=== PATIENT | female | born 1970 | race Caucasian/White ===

== ENCOUNTER 2017-05-31 16:10 | Emergency (ER) | payer OTHER ==
[2017-05-31 16:19] VITALS: RESP 16
[2017-05-31] MEDS ORDERED: NS 1,000 ML IV ONE (16:46)
--- NOTE | 2017-05-31 16:53 | EDPHY ---
H & P Time Seen by Provider: 05/31/17 16:21 HPI/ROS: HPI Headache, visual changes, muscle spasming. 46-year-old female by private vehicle with . This patient reports that on Tuesday evening she developed a right-sided parietal headache which she describes as a knot in her head. She states that with this she noticed a rash across her stomach. She also reports that she had spasming and sudden stiffening of her left lower extremity. She reports that she rested over the weekend and her symptoms resolved including her rash. She reports however today that her headache, described as above, came back while she was at work she reports that she had blurry vision and a hard time seeing her computer screen and felt like her knees were buckling and she was not able to stand and walk correctly. She reports that this is better now as well. She has not been out in [place]. No possible exposure to ticks. ROS: Constitutional: No fever, no chills. As above. Eyes: No discharge. No changes in vision. ENT: No sore throat. No nasal congestion or rhinorrhea. Respiratory: No cough. No shortness of breath. Cardiac: No chest pain, no palpitations. Gastrointestinal: She has had some intermittent lower abdominal discomfort but denies this now, no vomiting, no diarrhea. Genitourinary: No hematuria. No dysuria or increased frequency with urination. Musculoskeletal: No back pain. No neck pain. No myalgias or arthralgias. Skin: As above. Rash described as hives and blanching. Neurological: As above. Past medical history: She denies any significant past medical history. Social history: Nonsmoker. Drinks alcohol socially. Here with her . Physical Exam: General Appearance: Alert, no distress. This patient is responding to questions appropriately and in full sentences. This patient appears well- hydrated and well-nourished. Head: Normocephalic atraumatic. Eyes: Pupils equal and round no pallor or injection. No lid edema, erythema or injection. No nystagmus. No photophobia. 5 ENT, Mouth: Mucous membranes are moist. The pharyngeal tissues are unremarkable. No edema or swelling. No asymmetry suggestive of abscess. No erythema or exudates. Respiratory: There are no retractions, lungs are clear to auscultation with good air movement bilaterally. Cardiovascular: Regular rate and rhythm. No murmur. Gastrointestinal: Abdomen is soft and nontender, no masses, bowel sounds normal. No focal tenderness at McBurney's point. No Inman sign. Neurological: Motor sensory function is grossly intact. Cranial nerves are normal. Gait is normal. Cerebellar function, heel to burrell, finger to nose intact. Skin: Warm and dry, no rashes appreciated. Musculoskeletal: Neck is supple and nontender. No pain on flexion of her neck. Extremities are symmetrical. All joints range without pain or impingement. Psychiatric: No agitation. No depression. Database: EKG: Imaging: MRI of brain without contrast: Some atrophy noted. Mild sinusitis. Otherwise negative. Results were discussed with staff radiologist Dr. Minesh Earl. Procedures: Emergency department course: Vital signs reviewed. She is moderately hypertensive. Vital signs otherwise normal. I discussed the differential diagnosis with her. I discussed getting an MRI of her brain to evaluate for possible MS. She endorses. She consents to blood work as well. 6:50 p.m., patient re-evaluated. Resting comfortably at this time. Repeat neurologic Assessment is nonfocal. She is up and ambulatory with a normal gait. The results of her MRI and blood work discussed with her and her in detail. She feels comfortable going home at this time and I feel she is safe for discharge. I discussed follow-up with Neurology. She is in agreement with this plan. Return to emergency department precautions were reviewed. All of her questions were answered. She was discharged in good condition. Differential Diagnosis: The differential diagnosis on this patient includes but is not limited to MS, atypical migraine syndrome. Tick borne illness, CVA, TIA unlikely. This represents a partial list of diagnoses considered. These considerations are based on history, physical exam, past history, reassessment and diagnostic testing. Smoking Status: Never smoked Constitutional: Initial Vital Signs Temperature (C) 36.8 C 05/31/17 16:14 Heart Rate 88 05/31/17 16:14 Respiratory Rate 16 05/31/17 16:14 Blood Pressure 143/86 H 05/31/17 16:14 O2 Sat (%) 97 05/31/17 16:14 O2 Delivery Mode Room Air Allergies/Adverse Reactions: latex Allergy (Unknown, Verified 01/18/12 14:02) bacitracin [From Neosporin ([id number])] Allergy (Verified 01/18/12 14:02) bacitracin zinc [From Neosporin ([id number])] Allergy (Verified 01/18/12 14: 02) neomycin sulfate [From Neosporin ([id number])] Allergy (Verified 01/18/12 14: 02) polymyxin B [From Neosporin ([id number])] Allergy (Verified 01/18/12 14:02) Home Medications: Medication Instructions Recorded NK [No Known Home Meds] 05/31/17 Medical Decision Making - Diagnostics Imaging Results: Imaging Impressions Brain MRI 05/31/17 16:46 Impression: 1. Mild sinusitis. 2. Mild cerebral atrophy. 3. No acute infarct, acute hemorrhage, hydrocephalus, or mass effect. 4. No evidence of demyelinating disease. Findings and recommendations discussed with Emergency Department physician, Kinsey Medrano M.D., at 1806 hours, on May 31, 2017. Final report concurs with initial preliminary interpretation. - Data Points Laboratory Results: Laboratory Results 05/31/17 17:00 05/31/17 17:00 05/31/17 05/31/17 05/31/17 17:00 17:00 17:00 WBC 5.82 10^3/uL 10^3/uL (3.80-9.50) RBC 3.57 10^6/uL L 10^6/uL (4.18-5.33) Hgb 12.9 g/dL g/dL (12.6-16.3) Hct 36.6 % L % (38.0-47.0) MCV 102.5 fL H fL (81.5-99.8) MCH 36.1 pg H pg (27.9-34.1) MCHC 35.2 g/dL g/dL (32.4-36.7) RDW 13.5 % % (11.5-15.2) Plt Count 137 10^3/uL L 10^3/uL (150-400) MPV 10.3 fL fL (8.7-11.7) Neut % (Auto) 51.5 % % (39.3-74.2) Lymph % (Auto) 37.5 % % (15.0-45.0) Cameron % (Auto) 8.2 % % (4.5-13.0) Eos % (Auto) 0.9 % % (0.6-7.6) Baso % (Auto) 1.7 % % (0.3-1.7) Nucleat RBC Rel Count 0.0 % % (0.0-0.2) Absolute Neuts (auto) 3.00 10^3/uL 10^3/uL (1.70-6.50) Absolute Lymphs (auto) 2.18 10^3/uL 10^3/uL (1.00-3.00) Absolute Monos (auto) 0.48 10^3/uL 10^3/uL (0.30-0.80) Absolute Eos (auto) 0.05 10^3/uL 10^3/uL (0.03-0.40) Absolute Basos (auto) 0.10 10^3/uL 10^3/uL (0.02-0.10) Absolute Nucleated RBC 0.00 10^3/uL 10^3/uL (0-0.01) Immature Gran % 0.2 % % (0.0-1.1) Immature Gran # 0.01 10^3/uL 10^3/uL (0.00-0.10) Sodium 141 mEq/L mEq/L (135-145) Potassium 3.6 mEq/L mEq/L (3.5-5.2) Chloride 105 mEq/L mEq/L (97-110) Carbon Dioxide 20 mEq/l L mEq/l (22-31) Anion Gap 16 mEq/L mEq/L (8-16) BUN 15 mg/dL mg/dL (7-23) Creatinine 0.8 mg/dL mg/dL (0.6-1.0) Estimated GFR > 60 Glucose 107 mg/dL H mg/dL (70-100) Calcium 8.8 mg/dL mg/dL (8.5-10.4) Beta HCG, Qual NEGATIVE Medications Given: Discontinued Medications Sodium Chloride (Ns) 1,000 mls @ 0 mls/hr IV ONCE ONE; Wide Open PRN Reason: Protocol Stop: 05/31/17 16:47 Last Admin: 05/31/17 17:13 Dose: 1,000 mls Departure - Departure Disposition: Home, Routine, Self-Care Clinical Impression: Headache, Transient visual disturbance, Muscle spasm Condition: Good Instructions: Acute Headache (ED), Blurred Vision (ED) Additional Instructions: Read and follow provided instructions. Follow-up with Neurology, Dr. Guerrero, in 1-2 days for re-evaluation. Call his office at 9 o'clock tomorrow morning. Explained this is for an emergency department follow-up. He will have access to all you're testing done here. Return to the emergency department for worsening symptoms, worsening headache, changes in vision, numbness or weakness in your extremities or other serious concerns. Referrals: Lor Carlson MD [Primary Care Provider] - As per Instructions Klaus Guerrero DO [Medical Doctor] - As per Instructions
[2017-05-31 17:11] LABS: PLATELET COUNT 137 10^3/uL (150-400)
[2017-05-31 19:03] VITALS: BP 148/99; PULSE 76; TEMP 99; O2SAT 94
== END 2017-05-31 19:03 | disposition home or self-care (01) ==
DX: R51 Headache (principal); H53.8 Other visual disturbances; M62.838 Other muscle spasm; E86.9 Volume depletion, unspecified; Z91.040 Latex allergy status